=== PATIENT | male | born 1980 | race Caucasian/White ===

== ENCOUNTER 2017-06-29 00:24 | Emergency (ER) | payer SELFPAY ==
[~2017-06-29] VITALS: Ht 170.2 cm; Wt 104.0 kg
[2017-06-29 00:27] VITALS: Ht 170.2 cm; Wt 104.0 kg
[2017-06-29] MEDS ORDERED: DIPHTH/TET/ACEL PERTUSS (ADULT) 0.5 ML VIAL IM* ONE (01:30)
[2017-06-29] MEDS ORDERED: CIPROFLOXACIN 500 MG TAB PO ONE (01:30)
--- NOTE | 2017-06-29 01:58 | RADRPT ---
PROCEDURE: XR Left Foot. CLINICAL INDICATION: Left foot injury. Reference marker directed towards the lateral aspect of the proximal forefoot. The patient stepped on nail. TECHNIQUE: AP, lateral and oblique views of the left foot was obtained. The images were reviewed on a PACS workstation. COMPARISON: None. FINDINGS: The bones of the foot appear intact, with no evidence of fracture, dislocation, or subluxation. The joint spaces are preserved. The bone mineralization is normal. No significant soft tissue swelling is seen. IMPRESSION: No evident retained radiopaque foreign material in the soft tissues of the left foot. RPTAT: [facility] Physician Syed Date Time Electronically viewed and signed by Physician Syed on 06/29/2017 01:57 RS/
[2017-06-29] MEDS ORDERED: CIPR500T4 PO (02:06)
[2017-06-29] MEDS ORDERED: IBUP-1542 PO (02:06)
--- NOTE | 2017-06-29 02:18 | ERD ---
ER Documentation Chief Complaint Date/Time DATE: 06/29/17 TIME: 02:15 Chief Complaint punctured wound left foot w/ a nail HPI 36-year-old male patient with no significant past medical history presents to the ED complaining of a left foot injury that occurred 3 days ago. Reports that he started to notice some pus in the mid plantar area of his foot. States that he was wearing his shoes. States that he was walking and actually stepped on a nail. Denies any ankle pain bilaterally. Denies any fever, chills, nausea , vomiting, loss of sensation, loss of range of motion. States that he is not up-to-date with his tetanus vaccine. ROS All systems reviewed and are negative except as per history of present illness. Medications Home Meds Active Scripts Ciprofloxacin Hcl* (Ciprofloxacin Hcl*) 500 Mg Tablet, 500 MG PO BID for 10 Days , TAB Prov:KAMARI VARGAS PA-C 06/29/17 Ibuprofen* (Motrin*) 600 Mg Tab, 600 MG PO Q6, #30 TAB Prov:KAMARI VARGAS PA-C 06/29/17 Allergies Allergies: Coded Allergies: No Known Allergy (Unverified , 06/29/17) PMhx/Soc Medical and Surgical Hx: pt denies Medical Hx, pt denies Surgical Hx History of Surgery: No Anesthesia Reaction: No Hx Neurological Disorder: No Hx Respiratory Disorders: No Hx Cardiac Disorders: No Hx Psychiatric Problems: No Hx Miscellaneous Medical Probl: No Hx Alcohol Use: No Hx Substance Use: No Hx Tobacco Use: No Smoking Status: Never smoker Physical Exam Vitals Vital Signs Date Time Temp Pulse Resp B/P Pulse Ox O2 Delivery O2 Flow Rate FiO2 06/29/17 00:27 98.4 89 20 164/90 98 Physical Exam Const: [id number], well-nourished. In no acute distress. Head: Atraumatic, normocephalic Eyes: Normal Conjunctiva without injection ENT: Normal external ear, nose and mouth. Neck: Full range of motion. No meningismus. Resp: Clear to auscultation bilaterally. No wheezing, rhonchi, rales, or crackles. No accessory muscle use. No retractions. Cardio: Regular rate and rhythm, no murmurs Skin: No petechiae or rashes Back: No midline tenderness. No CVA tenderness. Ext: No cyanosis, or edema. Cap refill less than 2 seconds. Distal pulses intact bilaterally. Tenderness palpation of the left plantar foot with punctate wound noted. Slight discharge noted. No fluctuance or induration. No erythema or edema. Neur: Awake and alert. Normal gait and coordination. Muscle strength 5/5. Sensation intact bilaterally. Psych: Normal Mood and Affect Results 24 hrs Current Medications Medications (Trade) Dose Ordered Sig/Cammie Route PRN Reason Start Time Stop Time Status Last Admin Dose Admin Diphtheria/ Tetanus/Acell Pertussis (Adacel) 0.5 ml ONCE ONCE IM* 06/29/17 01:30 06/29/17 01:31 DC 06/29/17 01:16 Ciprofloxacin (Cipro) 500 mg ONCE ONCE PO 06/29/17 01:30 06/29/17 01:31 DC 06/29/17 01:16 Procedures/MDM 36-year-old male patient with no significant past medical history presents to the ED complaining of a left foot injury due to stepping on a nail wearing his shoe. Patient is afebrile and nontoxic-appearing. Patient was given his first dose of ciprofloxacin to cover pseudomonas bacteria here in the ED. Tdap administered to patient by nursing staff. Left foot x-ray was ordered to further evaluate patient. Left foot x-ray was negative for any fractures or dislocations. No nail or foreign bodies noted on x-ray. His wound was cleaned with normal saline. A clean dressing was applied. Patient is neurovascularly intact and ambulating without difficulty. Patient's extremity symptoms have stabilized while they have been evaluated in the department and are appropriate for outpatient follow up. No evidence of fractures, dislocations, compartment syndrome, neurologic injury, vascular injury, open joint, open fracture, tendon laceration, septic arthritis, osteomyelitis, DVT, foreign body, or other emergent conditions. Discharge medications: Ciprofloxacin, Ibuprofen Follow up with primary care physician in 1-2 days. Instructed patient to return to the ED sooner for any worsening symptoms. Patient's questions were answered. Patient understood and agreed with discharge plan. Patient discharged stable. Departure Diagnosis: Primary Impression: Puncture wound Condition: Stable Patient Instructions: First Aid: Punctures, Puncture Wound, Foot Referrals: [facility] Usted se ray hecho un examen mdico de control que le indica que no est en frances condicin que requiera tratamiento urgente en el Departamento de Emergencia. Un estudio ms profundo y el tratamiento de pratt condicin pueden esperar sin ningn riesgo hasta que usted sea atendida/o en el consultorio de pratt mdico o frances cl myriam. Es responsabilidad suya arreglar frances bibi para el seguimiento del tereso. MANEJO DE CONDICIONES NO URGENTES EN EL FUTURO 1) Si usted tiene un mdico de atencin primaria: Usted debera llamar a pratt mdico de atencin primaria antes de venir al departamento de emergencia. Despus de las horas de consultorio, pratt doctor o pratt asociado/a est disponible por telfono. El mdico o enfermero de haseeb en el servicio telefnico puede asesorarle por bridgett medio para atender el problema, o tereso contrario se puede programar frances bibi. 2) Si usted no tiene un mdico de atencin primaria: Llame al mdico o clnica de referencia que aparece abajo mal las horas de consultorio para hacer frances bibi para que le vean. CLINICAS: [facility] [phone] [facility] [phone] [facility] [[email or web address]] [phone] [facility]. [place] [id number] [phone] [place] [id number] [phone] [facility]. [phone] [facility] () Usted se ray hecho un examen mdico de control que le indica que no est en frances condicin que requiera tratamiento urgente en el Departamento de Emergencia. Un estudio ms profundo y el tratamiento de pratt condicin pueden esperar sin ningn riesgo hasta que usted sea atendida/o en el consultorio de pratt mdico o frances cl myriam. Es responsabilidad suya arreglar frances bibi para el seguimiento del tereso. MANEJO DE CONDICIONES NO URGENTES EN EL FUTURO 1) Si usted tiene un mdico de atencin primaria: Usted debera llamar a pratt mdico de atencin primaria antes de venir al departamento de emergencia. Despus de las horas de consultorio, pratt doctor o pratt asociado/a est disponible por telfono. El mdico o enfermero de haseeb en el servicio telefnico puede asesorarle por bridgett medio para atender el problema, o tereso contrario se puede programar frances bibi. 2) Si usted no tiene un mdico de atencin primaria: Llame al mdico o condado institucions de referencia que aparece abajo mal las horas de consultorio para hacer frances bibi para que le vean. SI USTED NO PUEDE PAGAR PARA MICHAEL UN MEDICO puede ir a: [facility] [address] [place] [address] [facility] [address] [place] [address] [facility] [address] [place] [address] [facility] [address] [place], [place] [id number] Additional Instructions: No juegue deportes o yelena un levantamiento pesado mientras est tomando ciprofloxacina WOUND CHECK:CONSULTE A PRATT MDICO EN 2 lema para michael PRATT HERIDA. Llame al doctor MAANA y yelena frances BIBI PARA DENTRO DE 2-3 DUGAN.Dgale a la secretaria que nosotros le instruimos hacer esta bibi.Avise o llame si pratt condicin se empeora antes de la bibi. Regresa aqui si peor o no mejor. KAMARI VARGAS PA-C Jun 29, 2017 02:18
== END 2017-06-29 02:20 | disposition home or self-care (01) ==
LOC: FTE 00:24
DX: S91.332A Puncture wound without foreign body, left foot, initial encounter (principal); W45.0XXA Nail entering through skin, initial encounter; Y92.9 Unspecified place or not applicable; Z23 Encounter for immunization
CPT/HCPCS: 90471; 90715